=== PATIENT | male | born 1985 | race Caucasian/White ===

== ENCOUNTER 2017-05-17 02:01 | Emergency (ER) | payer BC ==
[~2017-05-17] VITALS: Ht 180.3 cm; Wt 158.8 kg
[2017-05-17] MEDS ORDERED: IV NORMAL SALINE 1000ML BAG 1,000 ML IV ONE (02:30)
[2017-05-17 02:54] LABS: BASO % 0 % (0-3); EOS % 1 % (0-3); HEMATOCRIT 44.1 % (39.0-53.0); HEMOGLOBIN 14.9 g/dL (13.0-17.5); LYMPH # 1.5 x10^3/uL (1.0-4.8); LYMPH % 10 % (24-48); MEAN CORPUSCULAR HEMOGLOBIN 31 pg (25-35); MEAN CORPUSCULAR HGB CONC 34 g/dL (31-37); MEAN CORPUSCULAR VOLUME 92 fL (79-100); MONO % 8 % (0-9); NEUT % 82 % (31-73); PLATELET COUNT 190 x10^3/uL (140-400); RED BLOOD COUNT 4.82 x10^6/uL (4.30-5.70); RED CELL DISTRIBUTION WIDTH 13.4 % (11.5-14.5); WHITE BLOOD COUNT 15.4 x10^3/uL (4.0-11.0)
[2017-05-17 03:07] LABS: CALCIUM 9.2 mg/dL (8.5-10.1); CREATININE 0.6 mg/dL (0.7-1.3); GFR 156.1; POTASSIUM 5.4 mmol/L (3.5-5.1)
[2017-05-17 03:12] LABS: ALBUMIN 3.8 g/dL (3.4-5.0); ALBUMIN/GLOBULIN RATIO 1.2 (1.0-1.7); TOTAL BILIRUBIN 0.6 mg/dL (0.2-1.0); TOTAL PROTEIN 7.1 g/dL (6.4-8.2)
[2017-05-17 03:38] LABS: BILIRUBIN,URINE NEGATIVE (NEG); GLUCOSE,URINE NEGATIVE (NEG); NITRITE,URINE NEGATIVE (NEG); PH,URINE 6.5; PROTEIN,URINE NEGATIVE (NEG-TRACE); UROBILINOGEN,URINE 0.2 mg/dL (0.2 mg/dL)
[2017-05-17 03:45] LABS: BARBITURATES NEG (NEG); BENZODIAZEPINES NEG (NEG); CANNABINOIDS NEG (NEG); COCAINE NEG (NEG); METHADONE NEG (NEG); OPIATES NEG (NEG); PHENCYCLIDINE NEG (NEG)
[2017-05-17] MEDS ORDERED: ONDANSETRON PF 4 MG/2 ML VIAL. IV ONE (04:00)
[2017-05-17 04:04] LABS: BACTERIA,URINE FEW /HPF (0-FEW); SQUAMOUS EPITHELIAL CELL,UR FEW /LPF
--- NOTE | 2017-05-17 04:14 | PHYS DOC ---
Past Medical History Past Medical History: No Pertinent History Past Surgical History: No Surgical History Alcohol Use: None Drug Use: None Adult General Chief Complaint Chief Complaint: DIZZY/LIGHT HEADED HPI HPI Patient is a 31 year old M who presents with shortness of breath and nausea with no vomiting. Patient states he woke up at this morning with increasing shortness of breath and feels like he could not catch his breath. Patient had nausea with no vomiting. Patient has no previous history of cardiac disease. Patient has no history of a PE or DVT or any risk factors. Patient takes no medications. Patient is in moderate distress and the emergency room complaining he cannot catch his breath despite and O2 saturation 100% on room air. Patient has no history of panic attacks. Patient has no other complaints. Review of Systems Review of Systems GEN: Denies fevers, chills, sweats HEENT: Denies blurred vision, sore throat CV: Chest pain RESP: Shortness of breath GI: Nausea NEURO: Denies confusion, dizziness MSK: Denies weakness, joint pain/swelling Current Medications Current Medications Current Medications Medications (Trade) Dose Ordered Sig/Chad Start Time Stop Time Status Last Admin Dose Admin Info (Do NOT chart on this entry -- for MONITORING) 1 each PRN DAILY PRN 05/17/17 04:45 05/19/17 04:44 Iohexol (Omnipaque 300 Mg/ml) 75 ml 1X ONCE 05/17/17 05:00 05/17/17 05:01 DC Ondansetron HCl (Zofran) 4 mg 1X ONCE 05/17/17 04:00 05/17/17 04:01 DC Sodium Chloride 1,000 ml @ 1,000 mls/hr 1X ONCE 05/17/17 02:30 05/17/17 03:51 DC 05/17/17 03:15 1,000 MLS/HR Allergies Allergies Allergies Coded Allergies Type Severity Reaction Last Updated Verified No Known Drug Allergies 05/17/17 No Physical Exam Physical Exam GEN.: Moderate distress. Alert and oriented. HEENT: Head is normocephalic, atraumatic NECK: Supple. LUNGS: CTAB. HEART: RRR, S1, S2 present. Peripheral pulses intact ABDOMEN: Soft, nontender. Positive bowel sounds. EXTREMITIES: Without any cyanosis. NEUROLOGIC: Normal speech, normal tone PSYCHIATRIC: Normal affect, normal mood. SKIN: No ulcerations Current Patient Data Vital Signs Vital Signs Date Time Temp Pulse Resp B/P (MAP) Pulse Ox O2 Delivery O2 Flow Rate FiO2 05/17/17 02:10 97.8 92 16 125/80 (95) 99 Room Air 97.8 Lab Values Laboratory Tests Test 05/17/17 02:45 05/17/17 03:30 White Blood Count 15.4 x10^3/uL (4.0-11.0) H Red Blood Count 4.82 x10^6/uL (4.30-5.70) Hemoglobin 14.9 g/dL (13.0-17.5) Hematocrit 44.1 % (39.0-53.0) Mean Corpuscular Volume 92 fL (79-100) Mean Corpuscular Hemoglobin 31 pg (25-35) Mean Corpuscular Hemoglobin Concent 34 g/dL (31-37) Red Cell Distribution Width 13.4 % (11.5-14.5) Platelet Count 190 x10^3/uL (140-400) Neutrophils (%) (Auto) 82 % (31-73) H Lymphocytes (%) (Auto) 10 % (24-48) L Monocytes (%) (Auto) 8 % (0-9) Eosinophils (%) (Auto) 1 % (0-3) Basophils (%) (Auto) 0 % (0-3) Neutrophils # (Auto) 12.6 x10^3uL (1.8-7.7) H Lymphocytes # (Auto) 1.5 x10^3/uL (1.0-4.8) Monocytes # (Auto) 1.2 x10^3/uL (0.0-1.1) H Eosinophils # (Auto) 0.1 x10^3/uL (0.0-0.7) Basophils # (Auto) 0.0 x10^3/uL (0.0-0.2) Segmented Neutrophils % 86 % (35-66) H Band Neutrophils % 2 % (0-9) Lymphocytes % 5 % (24-48) L Monocytes % 6 % (0-10) Eosinophils % 1 % (0-5) Platelet Estimate Adequate (ADEQUATE) Sodium Level 143 mmol/L (136-145) Potassium Level 5.4 mmol/L (3.5-5.1) H Chloride Level 104 mmol/L (98-107) Carbon Dioxide Level 25 mmol/L (21-32) Anion Gap 14 (6-14) Blood Urea Nitrogen 14 mg/dL (8-26) Creatinine 0.6 mg/dL (0.7-1.3) L Estimated GFR (Cockcroft-Gault) 156.1 BUN/Creatinine Ratio 23 (6-20) H Glucose Level 129 mg/dL (70-99) H Calcium Level 9.2 mg/dL (8.5-10.1) Total Bilirubin 0.6 mg/dL (0.2-1.0) Aspartate Amino Transferase (AST) 46 U/L (15-37) H Alanine Aminotransferase (ALT) 55 U/L (16-63) Alkaline Phosphatase 69 U/L (46-116) Troponin I Quantitative < 0.017 ng/mL (0.000-0.055) Total Protein 7.1 g/dL (6.4-8.2) Albumin 3.8 g/dL (3.4-5.0) Albumin/Globulin Ratio 1.2 (1.0-1.7) Urine Collection Type Unknown Urine Color Yellow Urine Clarity Clear Urine pH 6.5 Urine Specific [place] 1.025 Urine Protein Negative mg/dL (NEG-TRACE) Urine Glucose (UA) Negative mg/dL (NEG) Urine Ketones (Stick) Trace mg/dL (NEG) Urine Blood Negative (NEG) Urine Nitrite Negative (NEG) Urine Bilirubin Negative (NEG) Urine Urobilinogen Dipstick 0.2 mg/dL (0.2 mg/dL) Urine Leukocyte Esterase Negative (NEG) Urine RBC 6-10 /HPF (0-2) Urine WBC 5-10 /HPF (0-4) Urine Squamous Epithelial Cells Few /LPF Urine Bacteria Few /HPF (0-FEW) Urine Hyaline Casts Moderate /HPF Urine Granular Casts Occasional /HPF Urine Mucus Mod /LPF Urine Opiates Screen Neg (NEG) Urine Methadone Screen Neg (NEG) Urine Barbiturates Neg (NEG) Urine Phencyclidine Screen Neg (NEG) Urine Amphetamine/Methamphetamine Neg (NEG) Urine Benzodiazepines Screen Neg (NEG) Urine Cocaine Screen Neg (NEG) Urine Cannabinoids Screen Neg (NEG) Urine Ethyl Alcohol Neg (NEG) Laboratory Tests 05/17/17 02:45 Laboratory Tests 05/17/17 02:45 EKG EKG 0257: EKG shows normal sinus rhythm rate of 89 no STEMI[] Radiology/Procedures Radiology/Procedures CT scan of the chest/abdomen/pelvis IMPRESSION: No acute process in the chest, abdomen or pelvis. No pulmonary artery embolus. The appendix is negative. Chest x-ray NAD[] Course & Med Decision Making Course & Med Decision Making Pertinent Labs and Imaging studies reviewed. (See chart for details) ED course: Patient was seen and examined emergency room cardiac workup was ordered Patient was moved from [place] [address] emergency room and started complaining of left upper quadrant pain therefore a CT angiogram of the chest and abdomen are ordered for further evaluation and management 0555: Patient was reevaluated and he is texting on the phone and was asymptomatic. Patient states he is wanting to go home. Made patient aware of CT findings and elevated potassium level 5.4. Explained the patient that since he is having no EKG changes to suggest hyperkalemia recommended following up with his PCP next one to 2 days to have his levels rechecked. Patient also has elevated white count however has no infectious process therefore I do not believe and antibiotics warranted at this time. MDM: After reviewing the chart, CC/HPI/PMH, physical exam, [lab results], [ radiological results], I do not believe the patient has emergent medical condition warranting further workup and/or admission at this time. The patient is not showing clinical signs of hyperkalemia and with a potassium of 5.4 I believe the patient is stable be discharged home with short-term follow-up with his PCP and have it rechecked. Patient has an elevated white count of 15 however no identified cause for an infectious process therefore the antibiotics are not indicated at this time. Patient is stable for discharge. Additional verbal discharge instructions were provided to the patient and that if symptoms get worse or any new symptoms arise that are worrisome to the patient he is to return to the emergency room immediately [] Dragon Disclaimer Dragon Disclaimer This electronic medical record was generated, in whole or in part, using a voice recognition dictation system. Departure Departure Impression: Primary Impression: Nausea and vomiting Additional Impressions: Abdominal pain Shortness of breath Chest pain Hyperkalemia Disposition: 01 HOME, SELF-CARE Condition: IMPROVED Referrals: NO PCP (PCP) Patient Instructions: Abdominal Pain, Shortness of Breath, [id number] Additional Instructions: Please follow-up with your family physician to have your potassium rechecked next one to 2 days and year white count rechecked Scripts Ondansetron (ZOFRAN ODT) 4 Mg Tab.rapdis 1 TAB SL Q8HRS, #10 TAB Prov: TYRELL LUCERO DO 05/17/17 Problem Qualifiers TYRELL LUCERO DO May 17, 2017 04:14
[2017-05-17] MEDS ORDERED: CONTRAST GIVEN MC PRN (04:45)
[2017-05-17] MEDS ORDERED: IOHEXOL 300 MG/ML 75 ML VIAL IV ONE (05:00)
--- NOTE | 2017-05-17 05:27 | RAD ---
CT angiography chest with contrast. CT abdomen and pelvis with contrast. HISTORY: Shortness of breath, left upper quadrant abdominal pain. TECHNIQUE: Helical CT imaging of the chest, abdomen and pelvis with multiplanar 3-D MIP reconstructions of the pulmonary arteries to assess for emboli with 75 mL Omnipaque 300 intravenous contrast. Chest findings: No pulmonary artery embolus. Thoracic aorta and esophagus are unremarkable. No adenopathy in the chest. Heart size is normal. No pneumothorax, pulmonary opacities or pleural effusions. Bones unremarkable. Abdomen findings: Kidneys, adrenals, spleen, pancreas, gallbladder and liver are unremarkable. No obstruction or inflammation GI tract. Appendix is negative. No abdominal fluid or adenopathy. Bones unremarkable. Pelvis findings: 2 cm fatty umbilical abdominal wall hernia. Bladder, prostate, rectum and bones are unremarkable. No fluid or adenopathy. IMPRESSION: No acute process in the chest, abdomen or pelvis. No pulmonary artery embolus. The appendix is negative. Exposure: One or more of the following individualized dose reduction techniques were utilized for this examination: 1. Automated exposure control 2. Adjustment of the mA and/or kV according to patient size 3. Use of iterative reconstruction technique Electronically signed by: Jose Luis Gabriel MD (05/17/2017 5:24 AM) [id number]
[2017-05-17 05:34] LABS: % EOS 1 % (0-5); PLT ESTIMATE ADEQUATE (ADEQUATE)
[2017-05-17] MEDS ORDERED: ONDA4TAB10 SL (06:01)
[2017-05-17 06:30] VITALS: BP 132/81
--- NOTE | 2017-05-17 06:37 | EKG ---
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
--- NOTE | 2017-05-17 07:19 | RAD ---
EXAM: Chest one view. HISTORY: Shortness of breath. COMPARISON: None. FINDINGS: A frontal view of the chest is obtained. There are no confluent infiltrates. There is no pneumothorax or pleural effusion. The heart is not enlarged. Prominence of the superior mediastinum is secondary to mediastinal fat on CT. IMPRESSION: 1. No confluent infiltrates.
== END 2017-05-17 06:30 | disposition home or self-care (01) ==
LOC: ER 02:01
DX: R11.2 Nausea with vomiting, unspecified (principal); R10.12 Left upper quadrant pain; R06.02 Shortness of breath; R07.89 Other chest pain; E87.5 Hyperkalemia; D72.829 Elevated white blood cell count, unspecified
CPT/HCPCS: 36415; 71010; 71275; 74175; 80053; 80307; 81001; 84484; 85007; 85025; 87086; 93005; 96360; 99285; J7030; G0479